=== PATIENT | female | born 1975 | race Caucasian/White ===

== ENCOUNTER 2021-08-17 16:55 | Observation (INO) | payer SELFPAY ==
--- NOTE | 2021-08-17 17:33 | P.HP ---
Certification for Inpatient Patient admitted to: Inpatient With expected LOS: >2 Midnights Patient will require the following post-hospital care: Other (Home oxygen) Practitioner: I am a practitioner with admitting privileges, knowledge of patient current condition, hospital course, and medical plan of care. Services: Services provided to patient in accordance with Admission requirements found in Title 42 Section 412.3 of the Code of Federal Regulations Patient History Date of Service: 08/17/21 Primary Care Provider: CHRIS Aly Reason for admission: Transfer from out patient ER due to Covid infection History of Present Illness: 46-year-old female with history of diabetes, hypertension presented to outpatient ER facility in [facility]. Patient has been complaining of cough, congestion and shortness of breath for over 7 days. She reported being positive for COVID-19 since early last week. Her symptoms have worsened. Other family members have been having similar problems but not to the degree that she had today. Over the last day she has been having increasing shortness of breath. She was seen at an outpatient ER facility in [facility]. She was found to be hypoxic. The patient required hospitalization. The facility reached our facility for possible transfer as there was not any available beds in [facility]. After review of the case the patient was transferred to our facility for admission. When I saw the patient in the room, patient was on 2 L per nasal cannula. Patient reports symptoms for over the past week. Patient still reports some increased shortness of breath with exertion. ER physician at facility reported COVID-19 findings on chest x-ray. Patient with diabetes, hypertension. She takes lisinopril and Metformin. Patient does not smoke or drink. She is unvaccinated. Home medications list reviewed: Yes - Past Medical/Surgical History Diabetic: Yes -: Diabetes mellitus type 2 -: Hypertension -: Appendectomy -: x2 Psychosocial/ Personal History: Patient is . She worked at a [employer] - Family History Family History: Reviewed- Non-Contributory - Social History Smoking Status: Never smoker Alcohol use: No CD- Drugs: No Caffeine use: No Place of Residence: Home Review of Systems General: Weakness, Malaise, As per HPI Eyes: Unremarkable ENT: Nose Congestion, As per HPI Respiratory: Cough, Shortness of Breath, SOB with Excertion, As per HPI Cardiovascular: As per HPI Gastrointestinal: Unremarkable Genitourinary: Unremarkable Musculoskeletal: Unremarkable Integumentary: Unremarkable Neurological: Unremarkable Lymphatics: Unremarkable Assessment and Plan - Plan Physical Exam: GENERAL: Patient alert, cooperative. Patient on 2 L per nasal cannula. VITAL SIGNS: Reviewed HEENT: Head is normocephalic and atraumatic. Extraocular muscles are intact. Pupils are equal, round, and reactive to light and accommodation. Nares appeared normal. Mouth is well hydrated and without lesions. Mucous membranes are moist. NECK: Supple. No carotid bruits. No lymphadenopathy or thyromegaly. LUNGS: Decreased to the bases but clear anteriorly. Currently on 2 L per nasal cannula. HEART: Regular rate and rhythm, no appreciable gallops, rubs, murmurs or extra heart sounds ABDOMEN: Soft, nontender, and nondistended. Positive bowel sounds. No hepatosplenomegaly was noted. EXTREMITIES: Without any cyanosis, clubbing, rash, lesions or peripheral edema. NEUROLOGIC: The patient is oriented to person, place and time. Strength and sensation are grossly intact. Face is symmetric. SKIN: Normal color, turgor and temperature. No ulcerations or rashes noted. Impression: Dyspnea secondary to bilateral COVID-19 pneumonia with hypoxia Diabetes mellitus type 2 Hypertension Plan: Dyspnea secondary to bilateral COVID-19 pneumonia with hypoxia: Patient admitted for further evaluation and treatment. Continue to monitor closely. Will obtain CRP, ferritin, and lab. We will also obtain chest x-ray. Recheck Covid test. Will start IV Solu-Medrol and supplementation. Continue DVT prophylaxisLovenox. Will provide medication for cough. Encourage incentive parameter, proning or lying her side. Will consult pulmonology for further recommendation. Anticipate continued improvement. Likely home in the next 1 to 2 days. Diabetes mellitus type 2: We will check A1c. Will provide sliding scale. Restart Metformin. Hypertension: Restart lisinopril Code Status: Full Code DVT prophylaxis: Lovenox Advanced Care Planning-30 minutes: Anticipate likely discharge in the next 1 to 2 days with home oxygen. Discharge Plan: Home Plan to discharge in: 48 Hours - Advance Directives Does patient have a Living Will: No Does patient have a Durable POA for Healthcare: No - Code Status/Comfort Care Code Status Assessed: Yes (Patient is full code) Time Spent Managing Pts Care (In Minutes): 55
[2021-08-17 17:35] VITALS: BMI 26.2
[2021-08-17] MEDS ORDERED: BENZONATATE 100 MG CAP PO PRN (17:56)
[2021-08-17] MEDS ORDERED: ACETAMINOPHEN 500 MG TAB PO PRN (17:56)
[2021-08-17] MEDS ORDERED: ONDANSETRON 4 MG/2 ML VIAL IV PRN (17:56)
--- NOTE | 2021-08-17 18:32 | RAD REPORT ---
EXAM DESCRIPTION: RAD - Chest Single View - 08/17/2021 6:21 pm CLINICAL HISTORY: COVID Chest pain. COMPARISON: No comparisons FINDINGS: Portable technique limits examination quality. Mild to moderate bilateral pulmonary opacities most compatible with underlying COVID infection. The h eart is normal in size. No displaced fractures.
[2021-08-17] MEDS: VITAMIN D 1000 UNIT TAB PO SCH (18:42)
[2021-08-17] MEDS: ENOXAPARIN 40 MG/0.4 ML SQ SCH (18:42)
[2021-08-17] MEDS: METHYLPREDNISOLONE 125 MG INJ IV SCH (18:42)
[2021-08-17 20:14] LABS: Basophils % 0.2 % (0-1.3); Hematocrit 37.1 % (36.0-45.0); Lymphocytes % 10.7 % (15.3-44.8); MPV 6.9 fL (7.6-11.3); RBC Red Blood Cell Count 4.18 M/uL (3.86-4.86)
[2021-08-17 20:59] LABS: Blood Morphology Comment NOT SEEN (NOT SEEN); Platelet Estimate INCR
[2021-08-17] MEDS: THIAMINE HCL 100 MG TABLET PO SCH (21:00)
[2021-08-17] MEDS: INSULIN -REGULAR HUMAN 50 UNIT/0.5 ML ML SQ SCH (21:00)
[2021-08-17] MEDS: ASCORBIC ACID 500 MG TABLET PO SCH (21:00)
[2021-08-17] MEDS: lisinopriL 10 MG TAB PO SCH (21:00)
[2021-08-17] MEDS: FAMOTIDINE 20 MG TAB PO SCH (21:00)
[2021-08-17 22:38] LABS: ALT/SGPT 41 U/L (12-78); AST/SGOT 26 U/L (15-37); Albumin 2.9 g/dL (3.4-5.0); Alkaline Phosphatase 91 U/L (45-117); BUN Blood Urea Nitrogen 10 mg/dL (7-18); Bicarbonate 29 mmol/L (21-32); Bilirubin Total 0.5 mg/dL (0.2-1.0); Ferritin 464.2 ng/mL (8-388); Glucose Level 265 mg/dL (74-106); Potassium 3.5 mmol/L (3.5-5.1); Protein, Total 7.4 g/dL (6.4-8.2); Sodium Level 137 mmol/L (136-145)
[2021-08-18] MEDS: METHYLPREDNISOLONE 125 MG INJ IV SCH ×3 (01:00→16:52)
[2021-08-18 03:54] LABS: Absolute Lymphocytes (CBC) 0.6 K/uL (0.7-4.9); Basophils % 0.1 % (0-1.3); Hematocrit 37.8 % (36.0-45.0); Lymphocytes % 7.1 % (15.3-44.8); RBC Red Blood Cell Count 4.28 M/uL (3.86-4.86)
[2021-08-18 04:36] LABS: ALT/SGPT 35 U/L (12-78); AST/SGOT 22 U/L (15-37); Albumin 2.8 g/dL (3.4-5.0); Alkaline Phosphatase 93 U/L (45-117); BUN Blood Urea Nitrogen 12 mg/dL (7-18); Bicarbonate 24 mmol/L (21-32); Bilirubin Total 0.5 mg/dL (0.2-1.0); Ferritin 450.7 ng/mL (8-388); Glucose Level 324 mg/dL (74-106); Protein, Total 7.4 g/dL (6.4-8.2); Sodium Level 135 mmol/L (136-145); Thyroid Stimulating Hormone 0.173 uIU/mL (0.360-3.740)
--- NOTE | 2021-08-18 06:31 | P.PN ---
Subjective Date of Service: 08/18/21 Primary Care Provider: CHRIS Aly Chief Complaint: Transfer from out patient ER due to Covid infection Subjective: Improving, Doing well Physical Examination - Vital Signs Temperature: 97.7 F Blood Pressure: 132/78 Pulse: 75 Respirations: 18 Pulse Ox (%): 96 - Studies Laboratory Data (last 24 hrs) 08/18/21 03:00: Sodium 135 L, Potassium 4.0, BUN 12, Creatinine 0.34 L, Glucose 324 H, Magnesium 2.0, Total Bilirubin 0.5, AST 22, ALT 35, Alkaline Phosphatase 93 08/18/21 03:00: WBC 8.60, Hgb 13.1, Hct 37.8, Plt Count 513 H 08/17/21 19:38: Sodium 137, Potassium 3.5, BUN 10, Creatinine 0.45 L, Glucose 265 H, Magnesium 2.0, Total Bilirubin 0.5, AST 26, ALT 41, Alkaline Phosphatase 91 08/17/21 19:38: WBC 9.50, Hgb 12.9, Hct 37.1, Plt Count 500 H Assessment & Plan Discharge Plan: Home Plan to discharge in: 24 Hours Physician Review Additional Text: COVID: Positive CXR: COMPARISON: No comparisons FINDINGS: Portable technique limits examination quality. Mild to moderate bilateral pulmonary opacities most compatible with underlying COVID infection. The heart is normal in size. No displaced fractures. Physical Exam: GENERAL: Patient alert, cooperative. Patient on 2 L per nasal cannula. VITAL SIGNS: Reviewed HEENT: Neck supple LUNGS: Overall improved. Currently on 2 L per nasal cannula. HEART: Regular rate and rhythm, no appreciable gallops, rubs, murmurs or extra heart sounds ABDOMEN: Soft, nontender, and nondistended. Positive bowel sounds. No hepatosplenomegaly was noted. EXTREMITIES: Without any cyanosis, clubbing, rash, lesions or peripheral edema. NEUROLOGIC: The patient is oriented to person, place and time. Strength and sensation are grossly intact. Face is symmetric. SKIN: Normal color, turgor and temperature. No ulcerations or rashes noted. Impression: Dyspnea secondary to bilateral COVID-19 pneumonia with hypoxia Diabetes mellitus type 2 Hypertension Plan: Dyspnea secondary to bilateral COVID-19 pneumonia with hypoxia: Patient doing well at this time. Currently on 2 L per nasal cannula. Will arrange for discharge today. Will need to make sure patient able to get home oxygen at discharge. We will continue with current plan of care until discharge. Diabetes mellitus type 2: Hemoglobin A1c 11.2. Will provide sliding scale. Continue Metformin. Hypertension: Continue lisinopril Code Status: Full Code DVT prophylaxis: Lovenox Advanced Care Planning-30 minutes: We will plan for discharge today Time Spent Managing Pts Care (In Minutes): 55
[2021-08-18 08:55] VITALS: O2SAT 94
[2021-08-18] MEDS ORDERED: ZINC SULFATE 220 MG CAP PO SCH (09:00)
[2021-08-18] MEDS: VITAMIN D 1000 UNIT TAB PO SCH (09:14)
[2021-08-18] MEDS: lisinopriL 10 MG TAB PO SCH (09:14)
[2021-08-18] MEDS: THIAMINE HCL 100 MG TABLET PO SCH (09:14)
[2021-08-18] MEDS: FAMOTIDINE 20 MG TAB PO SCH (09:14)
[2021-08-18] MEDS: ENOXAPARIN 40 MG/0.4 ML SQ SCH (09:15)
[2021-08-18] MEDS: ASCORBIC ACID 500 MG TABLET PO SCH ×2 (09:15→12:18)
[2021-08-18] MEDS: METFORMIN HCL 500 MG TAB PO SCH ×2 (09:15→16:52)
[2021-08-18] MEDS: INSULIN -REGULAR HUMAN 50 UNIT/0.5 ML ML SQ SCH ×3 (09:17→16:52)
--- NOTE | 2021-08-18 10:01 | P.DS ---
Admission Date: 08/17/21 Discharge Date: 08/18/21 Primary Care Provider: CHRIS Aly Disposition: ROUTINE DISCHARGE Discharge Condition: GOOD Reason for Admission: Transfer from out patient ER due to Covid infection Consultations: Pulmonary-Dr. Turner Procedures: COVID: Positive CXR: COMPARISON: No comparisons FINDINGS: Portable technique limits examination quality. Mild to moderate bilateral pulmonary opacities most compatible with underlying COVID infection. The heart is normal in size. No displaced fractures. Medical problem list: Dyspnea secondary to bilateral COVID-19 pneumonia with hypoxia Diabetes mellitus type 2 Hypertension Brief History of Present Illness: 46-year-old female with history of diabetes, hypertension presented to outpatient ER facility in [facility]. Patient has been complaining of cough, congestion and shortness of breath for over 7 days. She reported being positive for COVID-19 since early last week. Her symptoms have worsened. Other family members have been having similar problems but not to the degree that she had today. Over the last day she has been having increasing shortness of breath. She was seen at an outpatient ER facility in [facility]. She was found to be hypoxic. The patient required hospitalization. The facility reached our facility for possible transfer as there was not any available beds in [facility]. After review of the case the patient was transferred to our facility for admission. When I saw the patient in the room, patient was on 2 L per nasal cannula. Patient reports symptoms for over the past week. Patient still reports some in creased shortness of breath with exertion. ER physician at facility reported COVID-19 findings on chest x-ray. Patient with diabetes, hypertension. She takes lisinopril and Metformin. Patient does not smoke or drink. She is unvaccinated. Hospital Course: Patient presented with shortness of breath secondary to bilateral Covid pneumonia with hypoxia. Patient was transferred from ER facility in [facility] to our hospital for treatment. The patient has done well. At discharge patient currently on 2 L per nasal cannula. At discharge home oxygen will be arranged to maintain sats above 93%. Patient will continue with home oxygen at this time. At discharge patient will continue with prednisone 20 mg 1 pill twice daily for 7 days then 1 pill once daily for 7 days. The patient will also continue with Tessalon Perles 100 mg 3 times a day as needed for cough. Will recommend to continue aspirin 81 mg daily, zinc 220 mg 1 pill daily, vitamin D 2000 units 1 pill daily, vitamin C 500 mg 3 times a day, thiamine 100 mg daily and Pepcid 20 mg 1 pill daily. Patient will continue with COVID-19 isolation recommendations. Patient will continue with handwashing, facemask use and social distancing. Recommend patient to continue with incentive spirometer, lying on her side and increase ambulation as tolerated. Patient may need to limit her activities over the next week. Recommend follow-up with pulmonology within 1 week to follow-up this hospitalization and to help wean her off oxygen. Recommend follow-up with her PCP within 1 week to follow-up his hospitalization as well. Patient with diabetes mellitus type 2. Hemoglobin A1c 11.2. At discharge patient may continue with Metformin at 1000 mg 1 pill twice daily. Recommend to maintain blood sugars less than 140 fasting and less than 200 after meals. If blood sugars remain above 200 additional medication may be required. This can be done with the help of her PCP. Recommend to recheck hemoglobin A1c every 3 months to monitor progress. Patient with hypertension. Overall stable. At discharge patient will continue with lisinopril 20 mg daily. Recommend to maintain blood pressure less than 130/80. Further adjustment can be done by her PCP. Vital Signs/Physical Exam: Temp Pulse Resp BP Pulse Ox 97.7 F 75 18 132/78 96 08/18/21 09:54 08/18/21 09:54 08/18/21 09:54 08/18/21 09:54 08/18/21 09:54 General: Alert, In no apparent distress, Oriented x3, Cooperative HEENT: Atraumatic Neck: Supple Respiratory: Clear to auscultation bilaterally, Other (Currently on 2 L per nasal cannula) Cardiovascular: Normal pulses, Regular rate/rhythm Gastrointestinal: Normal bowel sounds, No ascites Musculoskeletal: No erythema, No tenderness, No warmth Integumentary: No tenderness/swelling Neurological: Normal speech, Normal strength at 5/5 x4 extr, Normal tone Laboratory Data at Discharge: WBC 8.60 K/uL (4.3-10.9) 08/18/21 03:00 Hgb 13.1 g/dL (12.0-15.0) 08/18/21 03:00 Hct 37.8 % (36.0-45.0) 08/18/21 03:00 Plt Count 513 K/uL (152-406) H 08/18/21 03:00 Sodium 135 mmol/L (136-145) L 08/18/21 03:00 Potassium 4.0 mmol/L (3.5-5.1) 08/18/21 03:00 BUN 12 mg/dL (7-18) 08/18/21 03:00 Creatinine 0.34 mg/dL (0.55-1.3) L 08/18/21 03:00 Glucose 324 mg/dL (74-106) H 08/18/21 03:00 Magnesium 2.0 mg/dL (1.8-2.4) 08/18/21 03:00 Total Bilirubin 0.5 mg/dL (0.2-1.0) 08/18/21 03:00 AST 22 U/L (15-37) 08/18/21 03:00 ALT 35 U/L (12-78) 08/18/21 03:00 Alkaline Phosphatase 93 U/L (45-117) 08/18/21 03:00 Home Medications: Lisinopril [Zestril] 20 mg PO DAILY 08/17/21 Metformin ER [Glucophage ER*] 1,000 mg PO BID 08/17/21 Ascorbic Acid [Vitamin C*] 500 mg PO TID #90 tablet 08/18/21 Aspirin [Aspirin EC 81 MG] 81 mg PO DAILY #90 tablet. 08/18/21 Benzonatate [Tessalon Perle*] 100 mg PO TID PRN #10 cap 08/18/21 Cholecalciferol (Vitamin D3) [Vitamin D 1000 Iu Tab*] 2,000 unit PO DAILY #60 tab 08/18/21 Famotidine [Pepcid*] 20 mg PO DAILY #30 tab 08/18/21 Thiamine HCl [Vitamin B-1*] 100 mg PO DAILY #30 tablet 08/18/21 Zinc Sulfate [Zinc Sulfate*] 220 mg PO DAILY #30 cap 08/18/21 predniSONE [Deltasone] 20 mg PO SEECOM #21 tab 08/18/21 New Medications: Aspirin [Aspirin EC 81 MG] 81 mg PO DAILY #90 tablet. Famotidine [Pepcid*] 20 mg PO DAILY #30 tab predniSONE [Deltasone] 20 mg PO SEECOM #21 tab Benzonatate [Tessalon Perle*] 100 mg PO TID PRN #10 cap PRN Reason: Cough Thiamine HCl [Vitamin B-1*] 100 mg PO DAILY #30 tablet Ascorbic Acid [Vitamin C*] 500 mg PO TID #90 tablet Cholecalciferol (Vitamin D3) [Vitamin D 1000 Iu Tab*] 2,000 unit PO DAILY #60 tab Zinc Sulfate [Zinc Sulfate*] 220 mg PO DAILY #30 cap Physician Discharge Instructions: Patient presented with shortness of breath secondary to bilateral Covid pneumonia with hypoxia. Patient was transferred from ER facility in [facility] to our hospital for treatment. The patient has done well. At discharge patient currently on 2 L per nasal cannula. At discharge home oxygen will be arranged to maintain sats above 93%. Patient will continue with home oxygen at this time. At discharge patient will continue with prednisone 20 mg 1 pill twice daily for 7 days then 1 pill once daily for 7 days. The patient will also continue with Tessalon Perles 100 mg 3 times a day as needed for cough. Will recommend to continue aspirin 81 mg daily, zinc 220 mg 1 pill daily, vitamin D 2000 units 1 pill daily, vitamin C 500 mg 3 times a day, thiamine 100 mg daily and Pepcid 20 mg 1 pill daily. Patient will continue with COVID-19 isolation recommendations. Patient will continue with handwashing, facemask use and social distancing. Recommend patient to continue with incentive spirometer, lying on her side and increase ambulation as tolerated. Patient may need to limit her activities over the next week. Recommend follow-up with pulmonology within 1 week to follow-up this hospitalization and to help wean her off oxygen. Recommend follow-up with her PCP within 1 week to follow-up his hospitalization as well. Patient with diabetes mellitus type 2. Hemoglobin A1c 11.2. At discharge patient may continue with Metformin at 1000 mg 1 pill twice daily. Recommend to maintain blood sugars less than 140 fasting and less than 200 after meals. If blood sugars remain above 200 additional medication may be required. This can be done with the help of her PCP. Recommend to recheck hemoglobin A1c every 3 months to monitor progress. Patient with hypertension. Overall stable. At discharge patient will continue with lisinopril 20 mg daily. Recommend to maintain blood pressure less than 130/80. Further adjustment can be done by her PCP. Diet: ADA Activity: Ad herberth Followup: NONE,NONE [Primary Care Provider] - Time spent managing pt's care (in minutes): 55
[2021-08-18 13:10] VITALS: TEMP 97.5
[2021-08-18 16:41] VITALS: BP 135/74
[2021-08-18] MEDS ORDERED: ASPIRIN EC 81 MG TAB PO SCH (19:00)
== END 2021-08-18 20:15 | disposition home or self-care (01) ==
LOC: 4TH 16:55
PROVIDERS: ADMIT Family Medicine; ATTEND Family Medicine
DX: U07.1 COVID-19 (principal); J12.82 Pneumonia due to coronavirus disease 2019; R09.02 Hypoxemia; E11.9 Type 2 diabetes mellitus without complications; I10 Essential (primary) hypertension
CPT/HCPCS: 36415; 71045; 80053; 82728; 82947; 83036; 83735; 84145; 84439; 84443; 85025; 86140; 87040; 94010; G0378; G0379; J1650; J2930; U0003